=== PATIENT | male | born 1960 | race Caucasian/White ===

== ENCOUNTER → 2016-11-24 | Outpatient (CLI) | payer OTHER ==
--- NOTE | 2016-11-24 13:13 | PCVCIMAG ---
APPROVED REPORT Exam: Stress Echocardiogram Indication: Hypertension Stress Nurse: Jovita De Leon RN Status: routine Ht: 6 ft 1 in Procedure The patient underwent an Exercise Stress Test using the Noé Protocol. Blood pressure, heart rate, and EKG were monitored. An Echocardiogram was performed by certified endoscopy technician in four stages in quad fashion. At peak stress, four selected images were obtained and placed side by side with resting images for comparison. Stress Test Details Stress Test: Exercise stress testing was performed using a Noé protocol. HR Resting HR: 80 bpmMax Heart Rate (APMHR): 164 bpm Max HR Achieved: 179 bpmTarget HR (85% APMHR): 139 bpm % of APMHR: 109 HR response to stress: Normal HR response to stress BP Resting BP: 144/90 mmHg Max BP: 200/100 mmHg ECG Resting ECG: Sinus Rhythm Stress ECG: Sinus Rhythm Clinical Reason for Termination: Maximal effort Exercise duration: 12 min sec Highest Stage Achieved: Stage 5: 5.0 mph at 18% grade. Exercise capacity: 13.70 METs Overall Exercise Capacity for Age: Good Pre-Stress Echo The resting Echocardiogram showed normal left ventricular contractility with an estimated Ejection Fraction of about 55-60%. Normal wall motion in all segments on baseline images. Post-Stress Echo The stress Echocardiogram showed normal left ventricular contractility with an estimated Ejection Fraction of about 60-65%. Normal augmentation of wall motion in all segments on post stress images. Clinical No clinical or ECG evidence for ischemia. Conclusion Clinical Response: Non-ischemic Exercise Capacity: Superior Stress ECG Response: Non-ischemic Stress Echo Images: Non-ischemic The left ventricle is normal in size and wall thickness in both the rest and stress images. Other Information Study Quality: Adequate <Conclusion> The left ventricle is normal in size and wall thickness in both the rest and stress images.
== END | disposition home or self-care (01) ==
LOC: PCVCIMAG 10:28
PROVIDERS: ATTEND Internal Medicine Cardiovascular Disease
DX: I10 Essential (primary) hypertension (principal); E78.5 Hyperlipidemia, unspecified; Z82.49 Family history of ischemic heart disease and other diseases of the circulatory system
CPT/HCPCS: 93325; 93351

== ENCOUNTER → 2018-06-28 | Outpatient (CLI) | payer OTHER ==
--- NOTE | 2018-06-28 14:23 | PCVCIMAG ---
APPROVED REPORT Study performed: 06/28/2018 09:10:34 EXAM: Comprehensive 2D, Doppler, and color-flow Echocardiogram [facility] BSA: 2.17 HR: 72 bpmBP: 132/88 mmHg Rhythm: NSR Other Information Study Quality: Good Risk Factors: Cardiac Risk Factors: HTN, Hyperlipidemia Indications Murmur 2D Dimensions IVSd: 10.07 (7-11mm)LVOT Diam: 24.76 (18-24mm) LVDd: 48.40 mm PWd: 9.53 (7-11mm)Ascending Ao: 39.87 (22-36mm) LVDs: 31.34 (25-40mm) Left Atrium: 30.48 (27-40mm) Aortic Root: 29.02 mm LV Single Plane 4CH: 58.45 % LV Single Plane 2CH: 55.31 % Biplane EF: 57.1 % Volumes Left Atrial Volume (Systole) Single Plane 4CH: 42.84 mLSingle Plane 2CH: 42.74 mL Biplane LA Volume: 47.00 mLLA ESV Index: 22.00 mL/m2 Aortic Valve AoV Peak Les.: 2.06 m/s AO Peak Gr.: 17.92 mmHgLVOT Max P.28 mmHg AO Mean Gr.: 10.71 mmHgLVOT Mean P.86 mmHg AO V2 Mean: 1.57 m/sLVOT Max V: 1.18 m/s AO V2 VTI: 48.41 cmLVOT Mean V: 0.79 m/s JACE (VTI): 2.39 pl6OHPR V1 VTI: 24.06 cm JACE Vmax: 2.74 cm2 AI Vmax: 3.56 m/sSV (LVOT): 115.80 mL AI [place]: 1.45 m/s2 AI PHT: 713.43 ms Mitral Valve E/A Ratio: 1.0 MV Decel. Time: 190.12 ms MV E Max Les.: 0.77 m/s MV A Les.: 0.78 m/s IVRT: 79.58 ms TDI E/Lateral E': 7.70E/Medial E': 8.56 Medial E' Les.: 0.09 m/s Lateral E' Les.: 0.10 m/s Pulmonary Valve PV Peak Les.: 1.16 m/sPV Peak Gr.: 5.42 mmHg Pulmonary Vein P Vein S: 0.72 m/sP Vein A: 0.33 m/s P Vein D: 0.46 m/sP Vein A Dur.: 103.8 msec P Vein S/D Ratio: 1.57 Tricuspid Valve TR Peak Les.: 2.68 m/s TR Peak Gr.: 28.81 mmHg TV Vmax: 0.61 m/sPA Pressure: 36.00 mmHg Left Ventricle The left ventricle is normal size. There is normal LV segmental wall motion. There is normal left ventricular wall thickness. Left ventricular systolic function is normal. The left ventricular ejection fraction is within the normal range. LVEF is 55-60%. The left ventricular diastolic function is normal. Right Ventricle The right ventricle is normal size. The right ventricular systolic function is normal. Atria The left atrium size is normal. The right atrium size is normal. Aortic Valve The aortic valve is not well visualized. Aortic valve is possibly bicuspid. Mild aortic regurgitation. There is no aortic valvular stenosis. Mitral Valve The mitral valve is normal in structure. There is no mitral valve regurgitation noted. No evidence of mitral valve stenosis. Tricuspid Valve The tricuspid valve is normal in structure. Mild tricuspid regurgitation with a PA pressure of 36 mmHg. Mild pulmonary hypertension. Pulmonic Valve The pulmonary valve is normal in structure. There is no pulmonic valvular regurgitation. Great Vessels The aortic root is normal in size. The ascending aorta is upper limits of normal in size. Aortic arch is normal in caliber. IVC is normal in size and collapses >50% with inspiration. Pericardium There is no pericardial effusion. There is no pleural effusion. <Conclusion> The left ventricle is normal size. LVEF is 55-60%. The left ventricular diastolic function is normal. The right ventricle is normal size. The left atrium size is normal. The aortic valve is not well visualized. Aortic valve is possibly bicuspid. Mild aortic regurgitation. There is no aortic valvular stenosis. There is no mitral valve regurgitation noted. Mild tricuspid regurgitation with a PA pressure of 36 mmHg. Mild pulmonary hypertension. The aortic root is normal in size. There is no pericardial effusion. There is no pericardial effusion.
== END ==
LOC: PCVCIMAG 09:00
PROVIDERS: ATTEND Internal Medicine Cardiovascular Disease
DX: I08.2 Rheumatic disorders of both aortic and tricuspid valves (principal); I27.20 Pulmonary hypertension, unspecified; I10 Essential (primary) hypertension; E78.5 Hyperlipidemia, unspecified; Z82.49 Family history of ischemic heart disease and other diseases of the circulatory system
CPT/HCPCS: 93306